=== PATIENT | male | born 1975 | race Hispanic/Latino ===

== ENCOUNTER 2018-06-16 13:57 | Emergency (ER) | payer SELFPAY ==
[2018-06-16] MEDS ORDERED: Lidocaine 1% (PF) 30 ML VIAL ONE (14:04)
[2018-06-16] MEDS ORDERED: Adacel (T-DAP) 0.5 ML SYRINGE ONE (14:04)
[2018-06-16] MEDS ORDERED: Triple Antibiotic Oint 1 GM Packet ONE (15:34)
== END 2018-06-16 15:50 | disposition home or self-care (01) ==
LOC: NAV ERS 13:57
DX: S61.215A Laceration without foreign body of left ring finger without damage to nail, initial encounter (principal); Z87.891 Personal history of nicotine dependence; W45.8XXA Other foreign body or object entering through skin, initial encounter
CPT/HCPCS: 12002; 90715; J2001